=== PATIENT | female | born 1955 | race Hispanic/Latino ===

== ENCOUNTER → 2024-11-01 | Outpatient (CLI) | payer OTHER, MEDICARE ==
--- NOTE | 2024-11-01 09:55 | HMCIMG ---
US ABDOMINAL COMPLETE HISTORY: Abdominal bloating COMPARISON: None TECHNIQUE: Multiple transverse and longitudinal ultrasound images of the abdomen were obtained. FINDINGS: Abdominal aorta and inferior vena cava are unremarkable. [place] is not well seen due to overlying bowel gas. Liver measured 15 cm. No gallstone is seen. Common duct measures 5 mm. Gallbladder wall measures 3 mm. Both kidneys are seen. Right kidney measures 10.6 x 4 x 3.5 cm. Left kidney measures 8 x 2.7 x 4.2 cm. No hydronephrosis is seen of the both kidneys. The spleen is grossly unremarkable. IMPRESSION: 1. Small gallbladder polyp is suspected. No gallstone or ductal dilatation is seen. 2. No hydronephrosis is seen.
== END | disposition home or self-care (01) ==
LOC: RAH 07:37
PROVIDERS: ATTEND Internal Medicine
DX: R14.0 Abdominal distension (gaseous) (principal)
CPT/HCPCS: 76700

== ENCOUNTER → 2024-11-28 | Outpatient (CLI) | payer OTHER, MEDICARE ==
[2024-11-28 22:30] VITALS: PULSE 60; RESP 12
[2024-11-28 23:00] VITALS: PULSE 54; RESP 14
[2024-11-28 23:30] VITALS: PULSE 47; RESP 14
[2024-11-29] VITALS (11 sets, daily range): PULSE 46–75; RESP 12–14
== END | disposition home or self-care (01) ==
LOC: SLP 20:28
PROVIDERS: ATTEND Internal Medicine
DX: G47.33 Obstructive sleep apnea (adult) (pediatric) (principal); R06.83 Snoring; R40.0 Somnolence
CPT/HCPCS: 95810

== ENCOUNTER → 2024-11-30 | Outpatient (CLI) | payer OTHER, MEDICARE ==
[2024-11-28 22:30] VITALS: PULSE 60; RESP 12
[2024-11-28 23:00] VITALS: PULSE 54; RESP 14
[2024-11-28 23:30] VITALS: PULSE 47; RESP 14
[2024-11-29] VITALS (11 sets, daily range): PULSE 46–75; RESP 12–14
[2024-11-30 23:07] VITALS: PULSE 58; RESP 20
[2024-11-30 23:30] VITALS: PULSE 54; RESP 16
[2024-12-01] VITALS (10 sets, daily range): PULSE 46–50; RESP 12–16
== END | disposition home or self-care (01) ==
LOC: SLP 20:27
PROVIDERS: ATTEND Internal Medicine
DX: G47.33 Obstructive sleep apnea (adult) (pediatric) (principal); R06.83 Snoring; R40.0 Somnolence
CPT/HCPCS: 95810; 95811